=== PATIENT | female | born 1965 | race Caucasian/White ===

== ENCOUNTER 2022-02-26 22:43 | Emergency (ER) | payer MEDICAID ==
[~2022-02-26] VITALS: Ht 149.9 cm; Wt 73.2 kg
[2022-02-27] MEDS ORDERED: KETOROLAC 30MG/ML VIAL IV ONE (00:15)
[2022-02-27] MEDS ORDERED: METH-653 MT (01:13)
[2022-02-27] MEDS ORDERED: IBUP-2029 MT (01:13)
[2022-02-27 02:00] VITALS: BP 135/70
== END 2022-02-27 03:00 | disposition home or self-care (01) ==
LOC: ER 22:43
DX: S09.8XXA Other specified injuries of head, initial encounter (principal); S33.5XXA Sprain of ligaments of lumbar spine, initial encounter; S13.9XXA Sprain of joints and ligaments of unspecified parts of neck, initial encounter; S43.401A Unspecified sprain of right shoulder joint, initial encounter; E11.9 Type 2 diabetes mellitus without complications; E78.00 Pure hypercholesterolemia, unspecified; K21.9 Gastro-esophageal reflux disease without esophagitis; I10 Essential (primary) hypertension; M79.7 Fibromyalgia; W01.0XXA Fall on same level from slipping, tripping and stumbling without subsequent striking against object, initial encounter; Y93.89 Activity, other specified; Y92.520 Airport as the place of occurrence of the external cause; Z98.890 Other specified postprocedural states
CPT/HCPCS: 70450; 71045; 72100; 72125; 73030; 73120; 96374; 99284; J1885